=== PATIENT | male | born 1985 | race Two or more races ===

== ENCOUNTER 2020-12-09 11:29 | Emergency (ER) | payer OTHER ==
[2020-12-09 12:13] VITALS: BMI 31.9
[2020-12-09] MEDS ORDERED: IBUPROFEN 400 MG TABLET (FP) PO ONE (13:02)
[2020-12-09 16:09] VITALS: BP 122/78; PULSE 86; TEMP 98
== END 2020-12-09 16:10 | disposition home or self-care (01) ==
LOC: JER 11:29
DX: R22.42 Localized swelling, mass and lump, left lower limb (principal); M25.572 Pain in left ankle and joints of left foot
CPT/HCPCS: 73610-TC-LT-FY; 73630-TC-LT; 93971-TC; 99284-25